=== PATIENT | male | born 1945 | race Caucasian/White ===

== ENCOUNTER 2022-12-25 14:28 | Emergency (ER) | payer OTHER ==
[~2022-12-25] VITALS: Ht 182.9 cm; Wt 87.1 kg
[2022-12-25 15:24] VITALS: BP_SYST 125; PULSE 108; RESP 20; TEMP 98.4; O2SAT 98
[2022-12-25] MEDS ORDERED: ACETAMINOPHEN 325 MG TABLET PO ONE (17:00)
[2022-12-25] MEDS ORDERED: GABAPENTIN 100 MG CAPSULE PO ONE (17:00)
[2022-12-25 19:30] VITALS: BP_SYST 128; PULSE 99; RESP 18; TEMP 98.2; O2SAT 98
== END 2022-12-25 19:30 | disposition home or self-care (01) ==
LOC: SED 14:28
DX: S52.122A Displaced fracture of head of left radius, initial encounter for closed fracture (principal); S43.492A Other sprain of left shoulder joint, initial encounter; S63.502A Unspecified sprain of left wrist, initial encounter; S63.8X2A Sprain of other part of left wrist and hand, initial encounter; E11.9 Type 2 diabetes mellitus without complications; I10 Essential (primary) hypertension; E78.5 Hyperlipidemia, unspecified; Z79.899 Other long term (current) drug therapy; W18.40XA Slipping, tripping and stumbling without falling, unspecified, initial encounter; Y93.01 Activity, walking, marching and hiking; Y92.89 Other specified places as the place of occurrence of the external cause; Y99.8 Other external cause status
CPT/HCPCS: 73030; 73090; 99284